=== PATIENT | female | born 1985 | race Two or more races ===

== ENCOUNTER 2022-08-13 17:33 | Emergency (ER) | payer SELFPAY ==
[~2022-08-13] VITALS: Ht 175.3 cm; Wt 81.5 kg
[2022-08-13 18:49] VITALS: BP 139/80
[2022-08-13] MEDS ORDERED: ACETAMINOPHEN 325 MG TAB PO ONE (19:45)
[2022-08-13] MEDS ORDERED: CYCL-837 PO (19:58)
[2022-08-13] MEDS ORDERED: IBUP800T27 PO (19:58)
== END 2022-08-13 21:01 | disposition home or self-care (01) ==
LOC: ER 17:33
DX: S63.502A Unspecified sprain of left wrist, initial encounter (principal); S20.212A Contusion of left front wall of thorax, initial encounter; S60.222A Contusion of left hand, initial encounter; F41.9 Anxiety disorder, unspecified; Z98.890 Other specified postprocedural states; V43.52XA Car driver injured in collision with other type car in traffic accident, initial encounter; Y93.89 Activity, other specified; Y92.410 Unspecified street and highway as the place of occurrence of the external cause; Y99.8 Other external cause status
CPT/HCPCS: 29125; 71045; 73110; 73130